=== PATIENT | male | born 1990 | race American Indian/Alaskan Native ===

== ENCOUNTER 2017-09-20 21:23 | Emergency (ER) | payer OTHER ==
[2017-09-20 21:28] VITALS: BP 146/71
[2017-09-20] MEDS ORDERED: DECADRON IM ONE (22:12)
[2017-09-20] MEDS ORDERED: BENADRYL PO ONE (22:14)
--- NOTE | 2017-09-20 22:49 | Emergency Department Report ---
ED Rash HPI - HPI Chief Complaint: Allergic Reaction Stated Complaint: ALLERGIC REACTION Time Seen by Provider: 09/20/17 21:49 Duration: Today Location: Back, Upper Extremities, Lower Extremities Suspected Cause: Food Rash Symptoms: Yes Itching, No Facial Swelling, No Tongue/Oral Swelling, No Breathing Difficulties, No Choking Sensation, No Wheezing/Dyspnea, No Peeling, No Blistering, No Fever, No Lightheaded, No Malaise, No Myalgias Severity: moderate Other History: 27 y.o. male presents with allergic rash from eating hot wings. Patient states he went to [employer] and ordered lemon pepper and garlic pepper wings. This was the first time he ate at this place. He is itching, red rash to upper extremities, lower extremities, and torso. Denies difficulty swallowing, SOB, dyspnea, wheezing, and chest pain. ED Review of Systems ROS: Stated complaint: ALLERGIC REACTION Other details as noted in HPI Constitutional: no symptoms reported, see HPI. denies: chills, diaphoresis, fever, malaise, weakness Respiratory: no symptoms reported, see HPI. denies: cough, orthopnea, shortness of breath, SOB with exertion, SOB at rest, stridor, wheezing Cardiovascular: as per HPI. denies: chest pain, palpitations, dyspnea on exertion, orthopnea, edema, syncope, paroxysmal nocturnal dyspnea Skin: as per HPI, rash (generalized), pruritus. denies: lesions, change in color, change in hair/nails Psychiatric: as per HPI. denies: anxiety, depression, auditory hallucinations, visual hallucinations, homicidal thoughts, suicidal thoughts ED Past Medical Hx - Past Medical History Previous Medical History?: No - Surgical History Past Surgical History?: No - Social History Smoking Status: Current Every Day Smoker Substance Use Type: None - Medications Home Medications: Home Medications Medication Instructions Recorded Confirmed Last Taken Type Cetirizine HCl [24Hour Allergy] 10 mg PO DAILY 30 Days #30 tablet 09/20/17 Unknown Rx EPINEPHrine [Epipen] 0.3 mg IJ ONCE #1 auto.injct 09/20/17 Unknown Rx Hydroxyzine HCl 10 mg PO DAILY 30 Days #30 tablet 09/20/17 Unknown Rx predniSONE [Deltasone] 20 mg PO QDAY 3 Days #3 tab 09/20/17 Unknown Rx Rash Exam - Exam General: Vital signs noted. No distress. Alert and acting appropriately. HEENT: No Periorbital Edema, No Conjuctival Injection, No Chemosis, No Perioral Edema, No Tongue Edema, No Uvular Edema, No Compromised Airway, No Drooling Lungs: Yes Good Air Exchange, No Wheezes, No Ronchi, No Stridor, No Cough, No Labored Respirations, No Retractions, No Use of Accessory Muscles, No Other Abnormal Lung Sounds Heart: Yes Regular, No Murmur Skin: Yes Urticarial Rash (to BUE and BLE), Yes Erythema, No Maculopapular Rash , No Morbilliform rash, No Bulla(e), No Excoriations, No Weeping, No Tenderness , No Edema, No Encrustations ED Course Vital Signs 09/20/17 21:26 Temperature 97.5 F L Pulse Rate 78 Respiratory 18 Rate Blood Pressure 146/71 O2 Sat by Pulse 100 Oximetry - Reevaluation(s) Reevaluation #1: 09/20/17 23:36 Airway, breathing, circulation normal. Negative angioedema to lips, tongue, and pharynx. Urticarial rash to BUE and BLE. Bendaryl 50 mg po liquid and Decadron 8 mg IM given. Discharged with prednisone 20 mg x 3 days, hydroxyzine HCI 50 mg , and cetirizine HCI 10. Critical care attestation.: If time is entered above; I have spent that time in minutes in the direct care of this critically ill patient, excluding procedure time. ED Disposition Clinical Impression: Allergic reaction to food Qualifiers: Encounter type: initial encounter Qualified Code(s): T78.1XXA - Other adverse food reactions, not elsewhere classified, initial encounter Disposition: DC-01 TO HOME OR SELFCARE Is pt being admited?: No Does the pt Need Aspirin: No Condition: Stable Instructions: Urticaria (ED), Food Allergy (ED), Anaphylaxis (ED) Additional Instructions: Return to emergency room if you have difficulty breathing or swallowing. F/U with allergy clinic or primary care provider. Prescriptions: Cetirizine HCl [24Hour Allergy] 10 mg PO DAILY 30 Days #30 tablet EPINEPHrine [Epipen] 0.3 mg IJ ONCE #1 auto.injct Hydroxyzine HCl 10 mg PO DAILY 30 Days #30 tablet predniSONE [Deltasone] 20 mg PO QDAY 3 Days #3 tab Referrals: Alexander Snyder [Other] - 3-5 Days Time of Disposition: 23:49 Print Language: YAKUT
== END 2017-09-21 00:01 | disposition home or self-care (01) ==
LOC: ED 21:23
DX: T78.1XXA Other adverse food reactions, not elsewhere classified, initial encounter (principal); F17.200 Nicotine dependence, unspecified, uncomplicated; X58.XXXA Exposure to other specified factors, initial encounter
CPT/HCPCS: 96372; 99282; J1100; Q0163

== ENCOUNTER 2019-10-19 08:06 | Emergency (ER) | payer SELFPAY ==
[2019-10-19 08:21] VITALS: BP 127/80
--- NOTE | 2019-10-19 09:02 | XRay Report ---
RIGHT HAND HISTORY: Trauma and pain. COMPARISON: None. TECHNIQUE: 3 views of the right hand were obtained. FINDINGS: Bones: No fracture or dislocation. A small exostosis at the distal lateral aspect of the proximal ph alanx of the fifth digit. Joint spaces: Maintained. Soft tissues: Mild soft tissue swelling of the lateral and dorsal aspects of the hand. No soft tissue air or foreign body. Additional findings: None. IMPRESSION: 1. Soft tissue swelling and no bony injury. 2. 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 Signer Name: John Foreman MD Signed: 10/19/2019 8:57 AM Workstation Name: [id number]
[2019-10-19] MEDS ORDERED: IBUPROFEN 800 MG TAB PO ONE (10:08)
--- NOTE | 2019-10-19 10:10 | Emergency Department Report ---
ED Upper Extremity Inj HPI - General Chief Complaint: Extremity Injury, Upper Stated Complaint: POSS BROKEN (R) HAND Time Seen by Provider: 10/19/19 09:22 Source: patient Mode of arrival: Ambulatory Limitations: No Limitations - History of Present Illness Initial Comments: 29 yo AA male comes to ER with R hand pain after punching wall. Hand swollen and bruised. No other injury. No meds or ice fire [employer]. Complaint: Injury to:: right -: Sudden Place: home Improves With: immobilization Worsens With: movement of extremity Context: direct blow Associated Symptoms: denies other symptoms - Related Data Previous Rx's Medication Instructions Recorded Last Taken Type Cetirizine HCl [24Hour Allergy] 10 mg PO DAILY 30 Days #30 tablet 09/20/17 Unknown Rx EPINEPHrine [Epipen] 0.3 mg IJ ONCE #1 auto.injct 09/20/17 Unknown Rx hydrOXYzine HCL [Hydroxyzine HCl] 10 mg PO DAILY 30 Days #30 tablet 09/20/17 Unknown Rx predniSONE [Deltasone] 20 mg PO QDAY 3 Days #3 tab 09/20/17 Unknown Rx Ibuprofen [Motrin] 800 mg PO Q8HR PRN #30 tablet 10/19/19 Unknown Rx Allergies Allergy/AdvReac Type Severity Reaction Status Date / Time No Known Allergies Allergy Unverified 09/20/17 21:28 ED Review of Systems ROS: Stated complaint: POSS BROKEN (R) HAND Other details as noted in HPI Comment: All other systems reviewed and negative ED Past Medical Hx - Past Medical History Previous Medical History?: No Additional medical history: Pt allergic to niacin - Surgical History Past Surgical History?: No - Social History Smoking Status: Never Smoker Substance Use Type: None - Medications Home Medications: Home Medications Medication Instructions Recorded Confirmed Last Taken Type Cetirizine HCl [24Hour Allergy] 10 mg PO DAILY 30 Days #30 tablet 09/20/17 Unknown Rx EPINEPHrine [Epipen] 0.3 mg IJ ONCE #1 auto.injct 09/20/17 Unknown Rx hydrOXYzine HCL [Hydroxyzine HCl] 10 mg PO DAILY 30 Days #30 tablet 09/20/17 Unknown Rx predniSONE [Deltasone] 20 mg PO QDAY 3 Days #3 tab 09/20/17 Unknown Rx Ibuprofen [Motrin] 800 mg PO Q8HR PRN #30 tablet 10/19/19 Unknown Rx ED Physical Exam - General Limitations: No Limitations General appearance: alert, in no apparent distress - Head Head exam: Present: atraumatic, normocephalic - Eye Eye exam: Present: normal appearance - ENT ENT exam: Present: mucous membranes moist - Neck Neck exam: Present: normal inspection - Respiratory Respiratory exam: Present: normal lung sounds bilaterally. Absent: respiratory distress - Cardiovascular Cardiovascular Exam: Present: regular rate, normal rhythm. Absent: systolic murmur, diastolic murmur, rubs, gallop - GI/Abdominal GI/Abdominal exam: Present: soft, normal bowel sounds - Rectal Rectal exam: Present: deferred - Extremities Exam Extremities exam: Present: normal inspection - Expanded Upper Extremity Exam Right Shoulder Exam: Present: normal inspection Upper Arm exam: Present: normal inspection Elbow exam: Present: normal inspection Forearm Wrist exam: Present: tenderness, swelling Hand Wrist exam: Present: tenderness, swelling Vascular: Present: normal capillary refill, radial pulse, brachial pulse, ulnar pulse - Back Exam Back exam: Present: normal inspection - Neurological Exam Neurological exam: Present: alert, oriented X3 - Psychiatric Psychiatric exam: Present: normal affect, normal mood - Skin Skin exam: Present: warm, dry, intact, normal color. Absent: rash ED Course Vital Signs 10/19/19 08:18 Temperature 98.8 F Pulse Rate 74 Respiratory 18 Rate Blood Pressure 127/80 O2 Sat by Pulse 98 Oximetry ED Medical Decision Making - Radiology Data Radiology results: report reviewed, image reviewed - Medical Decision Making ice splint given swelling and pain motrin for pain xray noted dc home with RICE and ortho follow up neurovasc intact- elbow and shoulder WNL; before and after splint moving distal fingers Vital Signs 10/19/19 08:18 Temperature 98.8 F Pulse Rate 74 Respiratory 18 Rate Blood Pressure 127/80 O2 Sat by Pulse 98 Oximetry - Differential Diagnosis ro fx Critical care attestation.: If time is entered above; I have spent that time in minutes in the direct care of this critically ill patient, excluding procedure time. ED Disposition Clinical Impression: Contusion, hand Disposition: DC-01 TO HOME OR SELFCARE Is pt being admited?: No Does the pt Need Aspirin: No Condition: Stable Additional Instructions: ICE REST SPLINT KEEP ELEVATED MOTRIN FOR PAIN FOLLOW UP WITH DR HOLLIDAY NEXT WEEK- GIVEN DEGREE OF SWELLING EVEN THOUGH XRAY NORMAL - YOU WILL NEED REPEAT IMAGING BY HIM REFERRAL BELOW Referrals: YASIR HOLLIDAY MD [Staff Physician] - 3-5 Days Time of Disposition: 10:09
== END 2019-10-19 10:30 | disposition home or self-care (01) ==
LOC: ED 08:06
DX: S60.221A Contusion of right hand, initial encounter (principal); Z79.899 Other long term (current) drug therapy; W22.01XA Walked into wall, initial encounter; Y93.89 Activity, other specified; Y92.89 Other specified places as the place of occurrence of the external cause; Y99.8 Other external cause status